=== PATIENT | female | born 1990 | race Caucasian/White ===

== ENCOUNTER 2019-09-29 02:19 | Emergency (ER) | payer BC ==
[~2019-09-29] VITALS: Ht 160 cm; Wt 115.7 kg
[2019-09-29] MEDS ORDERED: VENTOLIN HFA INH8 GM INH (02:27)
[2019-09-29] MEDS ORDERED: ADVAIR 250-501 EACH INH (02:29)
[2019-09-29] MEDS ORDERED: ALBUTEROL2.5 MG/31 INH (02:29)
[2019-09-29] MEDS ORDERED: DIAZEPAM 5 MG5 M1 PO (03:13)
[2019-09-29] MEDS ORDERED: TORADOL 10 MG T10 MG PO (03:13)
[2019-09-29 03:28] VITALS: BP 129/81
== END 2019-09-29 03:30 | disposition home or self-care (01) ==
LOC: M.ERS 02:19
DX: M43.6 Torticollis (principal); M79.18 Myalgia, other site; Z90.49 Acquired absence of other specified parts of digestive tract